=== PATIENT | female | born 1965 | race Caucasian/White ===

== ENCOUNTER → 2020-07-22 | Outpatient (CLI) | payer BC ==
[~2020-07-22] MED LIST: BUSPIRONE HCL5 MG PO; CRESTOR10 MG PO; ULTRAM 50MG50 MG PO; Z.0.ATIVAN1 MG PO; Z.0.ZOLOFT50 MG
== END ==
LOC: MAMMO 13:33
PROVIDERS: ATTEND Family Medicine
DX: Z12.31 Encounter for screening mammogram for malignant neoplasm of breast (principal)
CPT/HCPCS: 77067

== ENCOUNTER → 2021-09-29 | Outpatient (CLI) | payer BC | LOC: MAMMO 13:02 | PROVIDERS: ATTEND Obstetrics & Gynecology | DX: Z12.31 Encounter for screening mammogram for malignant neoplasm of breast (principal); Z13.820 Encounter for screening for osteoporosis | CPT/HCPCS: 77067; 77080 ==